=== PATIENT | male | born 1995 | race Caucasian/White ===

== ENCOUNTER 2022-11-18 18:02 | Emergency (ER) | payer SELFPAY ==
[~2022-11-18] VITALS: Ht 190.5 cm; Wt 90.7 kg
[2022-11-18 18:24] VITALS: BP_SYST 119; PULSE 92; RESP 20; TEMP 98.3; O2SAT 98
[2022-11-18 18:56] VITALS: BP_SYST 119; PULSE 92; RESP 20; TEMP 98.3; O2SAT 98
== END 2022-11-18 18:56 ==
LOC: SED 18:02
DX: S30.21XA Contusion of penis, initial encounter (principal); Z79.899 Other long term (current) drug therapy; X58.XXXA Exposure to other specified factors, initial encounter; Y93.89 Activity, other specified; Y92.89 Other specified places as the place of occurrence of the external cause; Y99.8 Other external cause status
CPT/HCPCS: 99283